=== PATIENT | female | born 1965 ===

== ENCOUNTER 2019-10-30 10:57 | Outpatient (CLI) | payer BC, OTHER ==
[2019-10-31 12:21] LABS: SARS-CoV-2 MS2 Positive; SARS-CoV-2 N Gene Negative; SARS-CoV-2 S Gene Negative; SARS-CoV-2 orf1ab Negative
== END 2019-10-30 10:58 | disposition home or self-care (01) ==
LOC: LABSCS 10:57
PROVIDERS: ATTEND Internal Medicine Critical Care Medicine
DX: Z48.812 Encounter for surgical aftercare following surgery on the circulatory system (principal); Z11.59 Encounter for screening for other viral diseases; G47.33 Obstructive sleep apnea (adult) (pediatric)
CPT/HCPCS: 87635; U0003

== ENCOUNTER 2019-11-02 19:00 | Outpatient (CLI) | payer BC | END 2019-11-02 19:01 | disposition home or self-care (01) | LOC: SLEEPLAB 19:00 | PROVIDERS: ATTEND Internal Medicine Critical Care Medicine | DX: G47.33 Obstructive sleep apnea (adult) (pediatric) (principal); R53.83 Other fatigue; R06.83 Snoring; G47.00 Insomnia, unspecified | CPT/HCPCS: 95811 ==